=== PATIENT | male | born 1995 | race African-American/Black ===

== ENCOUNTER 2019-03-10 21:10 | Emergency (ER) | payer SELFPAY ==
[~2019-03-10] VITALS: Ht 172.7 cm; Wt 72.6 kg
[2019-03-10] MEDS ORDERED: IBUPROFEN 600 MG TABLET PO ONE ×2 (22:13→22:30)
[2019-03-10] MEDS: IV NS 0.9% 1,000 ML BAG IV ONE (22:27)
[2019-03-10 22:28] LABS: BASOPHILS # (AUTO) 0.1 /CMM (0.0-0.2); BASOPHILS % (AUTO) 0.7 % (0.0-2.0); EOSINOPHILS % (AUTO) 0.2 % (0.0-6.0); HEMATOCRIT 47 % (39-51); HEMOGLOBIN 15.7 g/dL (13.5-17.5); LYMPHOCYTES # (AUTO) 0.8 /CMM (0.8-4.8); LYMPHOCYTES % (AUTO) 11.6 % (20.0-44.0); MEAN CORPUSCULAR HGB CONC 34 g/dl (31.0-36.0); MEAN CORPUSCULAR VOLUME 92 fL (80-96); MONOCYTES # (AUTO) 0.8 /CMM (0.1-1.30); MONOCYTES % (AUTO) 10.9 % (2.0-12.0); NEUTROPHILS # (AUTO) 5.6 /CMM (1.8-8.9); NEUTROPHILS % (AUTO) 76.6 % (43.0-81.0); PLATELET COUNT (AUTO) 233 /CMM (150-450); RED BLOOD CELL COUNT(AUTO) 5.06 MIL/uL (4.5-6.0); WHITE BLOOD COUNT (AUTO) 7.3 K/uL (4.3-11.0)
--- NOTE | 2019-03-10 22:31 | NUR ---
PT BIBS C/O: CHILLS, DRY COUGH, HOT FLASHES, "FEELING SICK" X2 DAYS, RUQ ABD PAIN X2 DAYS, +NAUSEA/VOMITING TO ER BED 3, BLOOD DRAWN AND SENT TO LAB, FLUIDS STARTED VITALS STABLE, ORDERS RECEIVED AND CARRIED OUT
[2019-03-10 22:36] LABS: CALCIUM, SERUM 9.5 mg/dL (8.5-10.1); CREATININE 1.1 mg/dL (0.6-1.3); POTASSIUM 3.5 mmol/L (3.5-5.1)
[2019-03-10 22:42] LABS: ALBUMIN 4.6 g/dL (3.4-5.0); BILIRUBIN,DIRECT 0.2 mg/dL (0.0-0.2); TOTAL PROTEIN, SERUM 8.4 g/dL (6.4-8.2)
--- NOTE | 2019-03-10 23:00 | NUR ---
Patient discharged to home in stable condition. Written and verbal after care instructions and rx given. Patient verbalizes understanding of instruction.
[2019-03-10 23:04] VITALS: BP 115/69
== END 2019-03-10 23:05 | disposition home or self-care (01) ==
LOC: ER 21:17
DX: J06.9 Acute upper respiratory infection, unspecified (principal); R10.11 Right upper quadrant pain; R11.2 Nausea with vomiting, unspecified; F17.200 Nicotine dependence, unspecified, uncomplicated
CPT/HCPCS: 36415; 80048; 80076; 85025; 96360; 99283; J7030